=== PATIENT | male | born 1990 | race Caucasian/White ===

== ENCOUNTER 2016-11-27 22:47 | Emergency (ER) | payer OTHER ==
[~2016-11-27] VITALS: Ht 172.7 cm; Wt 90.7 kg
--- NOTE | 2016-11-27 22:47 | NUR ---
Patient to [facility] for evaluation. Side rails up. Report given to VANCE Miller.
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
[2016-11-27 23:00] VITALS: BP 149/173; PULSE 120; RESP 18; TEMP 98.1; O2SAT 98
--- NOTE | 2016-11-27 23:36 | NUR ---
ER at bedside examining patient.
--- NOTE | 2016-11-27 23:59 | NUR ---
Written and verbal consent obtained from patient for blood alcohol, name and verified by patient. Disinfected patient's skin with betadine that did not contain alcohol or other volatile organic compound. Collected the blood from the subject named by venipuncture, in the presence of Officer Enedina magallon# [id number]. Used a sterile, dry hypodermic needle and dry vacuum blood collection. The dry vacuum blood collection was supplied by the officer named above. Withdrew a specimen of blood from left ac of the subject named above. Inverted the blood tube several times to ensure that the preservative and anticoagulant were thoroughly mixed in the blood specimen. I initialed the blood tube label for identification. The labeled blood tube was handed directly to the Officer named above. The blood tube stopper remained in place while I had possession of the blood tube. The Officer placed tube into envelope and sealed it in my presence. Envelope initialed by myself and Officer named above. Patient tolerated well, bandage applied, and bleeding controlled.
[2016-11-28 00:04] VITALS: BP 149/173; PULSE 120; RESP 18; TEMP 98.1; O2SAT 98
--- NOTE | 2016-11-28 00:04 | NUR ---
Patient given written and verbal discharge instructions and verbalizes understanding. ER MD Dr. Hicks discussed with patient the results and treatment provided. Patient in stable condition. ID arm band removed. Patient educated on pain management and to follow up with PMD. Pain Scale 2/10. Opportunity for questions provided and answered.
== END 2016-11-28 00:04 ==
LOC: SED 22:47
DX: Z02.83 Encounter for blood-alcohol and blood-drug test (principal); S39.012A Strain of muscle, fascia and tendon of lower back, initial encounter; R07.9 Chest pain, unspecified; V43.52XA Car driver injured in collision with other type car in traffic accident, initial encounter; W22.10XA Striking against or struck by unspecified automobile airbag, initial encounter; Y93.89 Activity, other specified; Y99.8 Other external cause status; Y92.89 Other specified places as the place of occurrence of the external cause
CPT/HCPCS: 99283